=== PATIENT | female | born 1995 | race American Indian/Alaskan Native ===

== ENCOUNTER 2020-01-05 19:30 | Observation (INO) | payer MEDICAID ==
[2020-01-05] MEDS ORDERED: Naloxone 2 MG/2 ML Syringe IVPUSH PRN (20:36)
[2020-01-05] MEDS ORDERED: Methylergonovine 0.2 MG/1 ML Amp IM PRN (20:36)
[2020-01-05] MEDS ORDERED: Promethazine 25 MG/ML SDV IM PRN (20:36)
[2020-01-05] MEDS ORDERED: Tranexamic Acid 1,000 MG in Sodium Chloride 0.9% 100 ML IV PRN (20:36)
[2020-01-05] MEDS ORDERED: Carboprost Tromethamine 250 MCG/1 ML Amp IM PRN (20:36)
[2020-01-05] MEDS ORDERED: Acetaminophen 325 MG Tab PO PRN (20:36)
[2020-01-05] MEDS ORDERED: Ondansetron 4 MG/2 ML SDV IVPUSH PRN ×2 (20:36)
[2020-01-05] MEDS ORDERED: fentaNYL 100 MCG/2 ML SDV IVPUSH PRN (20:36)
[2020-01-05] MEDS ORDERED: Misoprostol 400 MCG (4 X 100 MCG TAB) RECTAL PRN (20:36)
[2020-01-05] MEDS ORDERED: ePHEDrine 50 MG/ML SDV IVPUSH PRN (20:36)
[2020-01-05] MEDS ORDERED: Lidocaine 1% 30 ML SDV INJECT PRN (20:36)
[2020-01-05] MEDS ORDERED: Lactated Ringers 1,000 ML IV ONE (20:36)
[2020-01-05] MEDS ORDERED: Sodium Chloride 0.9% 10 ML Syringe FLUSH PRN (20:36)
[2020-01-05] MEDS ORDERED: Sodium Chloride 0.9% 1,000 ML IV ONE (20:45)
[2020-01-05] MEDS ORDERED: Oxytocin/Normal Saline 30 UNIT/500 ML BAG IV SCH (20:45)
[2020-01-05] MEDS ORDERED: Lactated Ringers 500 ML IV SCH (20:45)
[2020-01-05] MEDS ORDERED: Lactated Ringers 500 ML IV ONE (20:45)
[2020-01-05] MEDS ORDERED: Lactated Ringers 1,000 ML IV SCH (20:45)
--- NOTE | 2020-01-06 00:39 | HP ---
CHIEF COMPLAINT: Leakage of fluid. HISTORY OF PRESENT ILLNESS: A 24-year-old 1, para 0, currently at 39- 4/7 weeks' gestation based on 9-week ultrasound and a working due date of 01/08/2020, presents to Labor and Delivery reporting some off and on leakage from her vagina throughout the day and initially was not sure if this was urinary leakage or amniotic fluid, but it continues to trickle and is not stopping. It has remained clear. She has had no vaginal bleeding. Reports she also started having some irregular contractions, but really cannot tell me what time they started or how far apart they are. Otherwise, reporting good movement. No symptoms of preeclampsia. No other acute concerns or problems at this time. HISTORY: She is seeing Dr. Dewitt for care. Medication exposures include vitamin, Keflex, amoxicillin, and Rocephin. She had an impaired 1-hour glucose tolerance test of 146, but 3-hour test was negative. She has some obesity and she was also treated for a skin abscess this . Her blood type is O positive. She is rubella immune and group B strep negative. Urine drug screen negative. Hepatitis testing, HIV testing, syphilis testing, gonorrhea, and chlamydia were all negative. PAST MEDICAL HISTORY: Obesity, otherwise negative. SURGICAL HISTORY: None. FAMILY HISTORY: Mother from breast cancer when she was only 39 years old. Father's history is unknown as she does not keep in touch with him. Reports that she has several sisters, 1 of whom named Tremayne has polycystic ovarian syndrome. She has 3 brothers, who are all alive and well. Paternal grandfather and his medical history is unknown. Paternal grandmother with cancer. Maternal grandmother had breast cancer and still alive. Maternal grandfather is unknown. Several aunts have various types of cancers. Otherwise, family history is reportedly unremarkable. SOCIAL HISTORY: The patient has lived with her boyfriend for the last 6 years and this is the first child for each of them. She works at the [employer] at the [employer] in [place]. He works at the same [employer] in the [employer]. He also is a road builder for actual structures and buildings. Reports that his health is good. He has a brother with type 1 diabetes and his mother has type 2 diabetes. He chews tobacco and occasionally smokes. She quit smoking for the . They do have 2 dogs at home. MEDICATIONS: vitamins and Tylenol when needed. ALLERGIES: No known drug allergies. She is allergic to garcía and chemicals in the chlorinated pools. REVIEW OF SYSTEMS: As per the history of present illness, otherwise reportedly negative. PHYSICAL EXAMINATION: General: Healthy, well-appearing, female. Vital Signs: Blood pressure 129/78, pulse of 82. She is afebrile and respiratory rate of 18. HEENT: Unremarkable. Teeth were in good hygiene. Neck: Supple without adenopathy. Heart: Regular without murmur. Lungs: Clear to auscultation bilaterally. Abdomen: Gravid. Baby palpates vertex. [place] shows baseline heart tones at 135 beats per minute. Moderate oozg-dk-uljn variability and accelerations noted. Contractions are approximately every 6 minutes. Cervix is 3 cm, 50%, and -3. Bag of membranes is not palpated. Extremities: Trace edema. No erythema or tenderness is noted. Skin: Warm, dry, and appropriate for race. Neurological: Appropriate. No focal deficits. Reflexes are 2+ and equal. LABORATORY DATA: Hemoglobin 12.9, platelets 263. Rapid COVID is negative. ASSESSMENT: 1. Early labor in a 1, para 0 female patient at 39-4/7 weeks' gestation. 2. Obesity affecting . PLAN: The patient will be admitted to Labor and Delivery and we will see how things progress. Anticipate natural progression of labor. However, we will augment with Pitocin if necessary and plan for vaginal delivery making other adjustments as needed should any complications or problems arise. [facility] /[id number]
--- NOTE | 2020-01-06 15:28 | DISCH ---
ADMITTING DIAGNOSES: 1. Early labor in a 1, para 0 female patient at 39-4/7 weeks' gestation. 2. Obesity, affecting . DISCHARGE DIAGNOSES: 1. 1, para 0, at 39-5/7 weeks' gestation, not in active labor. 2. Obesity, affecting . 3. COVID test negative. BRIEF HISTORY: A 24-year-old female presented to the hospital believing that she had spontaneous rupture of membranes due to some clear leakage of fluid on and off throughout the day and some irregular contractions. She did have some clear fluid seen at the perineal area and AmniSure was not initially done because the patient's contractions went from every 6 minutes to every 4 minutes while she was here and she was 3 cm dilated when she had only been a centimeter and a half at the office a few days earlier, so it was felt that she was in early labor and so she was admitted for labor with a suspicion of ruptured membranes late in the evening. After midnight, her cervix had made significant change, and she was now having spacing of her contractions, so Pitocin was initiated for labor induction assuming that she was spontaneously ruptured. In the morning when I came in and saw her, her cervix was unchanged, Pitocin was at 10, and she was aicha about every 2 minutes but they were mild and she was not really feeling them. Decision was made to run an AmniSure test that was negative. Cervix remained unchanged. Pitocin was turned off. The baby had a verified category 1 tracing and contractions spaced further. Therefore, decision was made that she was not in labor and not ruptured, therefore, could be discharged home and present again when she is actually in labor. The patient had benefit of being here and observed overnight since she lives a couple of hours away from the hospital and she had initially presented in the late evening. Discharge condition is good. Blood pressure 119/79, pulse of 79, temperature 97.4, and respiratory rate of 18. monitoring strip: Baseline heart tones 125 beats per minute with moderate kaup-si-qalz variability. Accelerations noted. [place] shows showing some contractions about every 5 minutes when they traced well, but patient really denied feeling anything painful. It was discussed with her that she was not in active labor and not ruptured, and there were increased risks associated with proceeding with induction of labor when it is not appropriate and given that she was most recently on Pitocin of 12 and still not changing her cervix, it was felt best to await natural labor. Her questions were answered, and she was satisfied with that. DISPOSITION: Home. MEDICATIONS: Tylenol if needed for pain or discomfort. Otherwise, continue her vitamin and iron. FOLLOWUP: She will keep her next scheduled appointment with Dr. Dewitt for further assessment at that time. INSTRUCTIONS: She understands to return to Labor and Delivery if she has repeat leakage of fluid that is concerning for spontaneous rupture. If she has regular contractions, decreased movement, signs and symptoms of labor, preeclampsia or any other concerns or questions, she can certainly call. The patient felt comfortable with the plan and she was discharged. [facility] /[id number] MARIA DEL CARMEN
== END 2020-01-06 11:45 | disposition home or self-care (01) ==
LOC: DL.OBCHECK 19:30 → DL.OB 20:37
PROVIDERS: ADMIT Family Medicine; ATTEND Family Medicine
DX: O47.1 False labor at or after 37 completed weeks of gestation (principal); O99.214 Obesity complicating childbirth; Z3A.39 39 weeks gestation of pregnancy; Z20.828 Contact with and (suspected) exposure to other viral communicable diseases
CPT/HCPCS: 36415; 84112; 85027; 87635; 96361; 96365; 96366; A9270; G0378; J2590; J7120; U0002

== ENCOUNTER 2020-01-09 04:55 | Inpatient (IN) | payer MEDICAID ==
[2020-01-09] MEDS ORDERED: Lidocaine 1% 30 ML SDV INJECT PRN (06:31)
[2020-01-09] MEDS ORDERED: Misoprostol 400 MCG (4 X 100 MCG TAB) RECTAL PRN (06:31)
[2020-01-09] MEDS ORDERED: Ondansetron 4 MG/2 ML SDV IVPUSH PRN (06:31)
[2020-01-09] MEDS ORDERED: Acetaminophen 325 MG Tab PO PRN (06:31)
[2020-01-09] MEDS ORDERED: Tranexamic Acid 1,000 MG in Sodium Chloride 0.9% 100 ML IV PRN (06:31)
[2020-01-09] MEDS ORDERED: Carboprost Tromethamine 250 MCG/1 ML Amp IM PRN (06:31)
[2020-01-09] MEDS ORDERED: Sodium Chloride 0.9% 10 ML Syringe FLUSH PRN ×2 (06:31→19:40)
[2020-01-09] MEDS ORDERED: Methylergonovine 0.2 MG/1 ML Amp IM PRN (06:31)
[2020-01-09] MEDS ORDERED: Lactated Ringers 1,000 ML IV ONE (06:31)
[2020-01-09] MEDS: Lactated Ringers 1,000 ML IV SCH ×2 (06:41→14:13)
[2020-01-09] MEDS ORDERED: Oxytocin/Normal Saline 30 UNIT/500 ML BAG IV SCH (06:45)
--- NOTE | 2020-01-09 07:41 | OBOUT ---
DATE: 01/09/2020 TIME: 5:40 to 6 a.m. REASON FOR NST: 1. Intrauterine at 40-1/7 weeks by 9-1/7 week ultrasound. 2. Rupture of membranes with early labor. Rupture membranes at approximately 2 a.m. on date of admission. 3. GBS negative. 4. Impaired glucose tolerance. 5. G1, P0. NST INTERPRETATION: During this time period, heart tone baseline is approximately 130, and at least two 15 x 15 beats per minute accelerations making this strip reactive as well as reassuring. Tocometer reveals potential of at least 1 and possibly 2 contractions felt by patient. ASSESSMENT: 1. Nonstress test, reactive and reassuring. 2. Tocometer with contractions. PLAN: Please see admit history and physical for further details. [facility] /[id number]
--- NOTE | 2020-01-09 07:44 | HP ---
PATIENT IDENTIFICATION: Latasha Covarrubias is a 24-year-old, G1, P0, intrauterine at 40-1/7 weeks by 9-1/7 week ultrasound, who presents with leaking of vaginal fluid. HISTORY OF PRESENT ILLNESS: The patient states around 2 a.m., she woke up with her underwear completely soaked. She had to change them over 2 times, wore a pad to the local hospital, was evaluated there, and sent here as suspected rupture of membranes. Associated with this have been some mild cramps/contractions felt in the lower abdomen, that is intermittent in nature. She does also note some minimal bloody show. No active significant amount of bleeding. To put this in context, she was seen earlier this week over the weekend, was admitted overnight with suspected rupture of membranes, which turned out to be negative, and was sent home. She also has impaired glucose tolerance and is GBS negative. Records called for, reviewed as below, and supplemented by patient history. [facility]: ABO blood type O positive, negative antibody. Rubella immune. RPR nonreactive. Negative hepatitis B surface antigen. Negative hep C, HIV, GC, and Chlamydia. Wet prep within normal limits. One-hour GTT was 146 with 3-hour GTT being negative for gestational diabetes mellitus. GBS was negative on 12/07/2019. ALLERGIES: None. MEDICATION: vitamins. PAST MEDICAL/PAST SURGICAL HISTORY: Remarkable for chickenpox as a child. FAMILY HISTORY: Negative family history of anesthesia problems, bleeding problems, or defects. Breast cancer in mother, who was 37 years old when she passed. SOCIAL HISTORY: Lives in [place] with her boyfriend, father of the baby, Brenden Pham, and a female roommate, who presents with her today. She quit smoking when she had a positive test. During this , no alcohol or drug use elicited. REVIEW OF SYSTEMS: Otherwise reviewed fully and felt to be contributory for the above. OBJECTIVE: Vital Signs: Blood pressure 123/67, heart rate 92, temperature 97.5. Appearance: Female appears stated age, nontoxic appearance with breathing through occasional cramps/contractions while evaluating her, but answering questions appropriately in between. Head: Atraumatic. EOMs intact. PERRLA. No scleral icterus. No obvious otorhinorrhea. Mucous membranes are moist. Neck: No obvious tenderness. Lungs: Clear to auscultation bilaterally. No increased work of breathing. Heart: S1, S2. Regular rate and rhythm. Abdomen: Gravid. Sony's indeterminate. Nontender, nondistended. Bowel sounds positive. No organomegaly or obvious hernias. No rebound, rigidity, or guarding. : Normal external female genitalia. Normal position and presentation of urethra. Vaginal exam changed from 2 cm to 3 cm from nurse to my evaluation over an hour. There is some vaginal leaking that appears clear with some mild bloody show. Forebag was felt. Then, artificial rupture of membranes using amnio hook was done of this, yielding copious amounts of clear fluid. She is 3 cm, 60% to 75% effaced, -1 station. Vertex suspected and well applied. Extremities: No peripheral edema. Deep tendon reflexes 2 to 3 out of 4 bilaterally and symmetric in extremities. Psychiatric: Mood and affect congruent. Judgment and insight intact. Skin: Without cyanosis, clubbing, or jaundice. heart tones initially were in the 120s to 130s range, felt to be reactive and reassuring. Tocometer reveals occasional contraction. Rapid COVID is negative. CBC is pending. ASSESSMENT: 1. Intrauterine at 40-1/7 weeks by 9-1/7 week ultrasound. 2. Rupture of membranes with possible early labor as this occurred at 2 a.m. in the morning. It is currently around 6:30, 4-1/2 hours after. She has had occasional contraction. She had mild cervical change and forebag was felt, and artificial rupture membranes was done yielding copious amounts of clear fluid with some mild bloody show. 3. Group B Streptococcus negative. 4. Impaired glucose tolerance. 5. G1, P0. PLAN: We will continue to follow closely. If contractions do not increase in frequency or intensity, may consider Pitocin augmentation and follow closely at this point in time. The patient understands and agrees with above treatment plan. [facility] /[id number] MTDD
[2020-01-09] MEDS ORDERED: fentaNYL 100 MCG/2 ML SDV IVPUSH PRN (10:48)
[2020-01-09] MEDS ORDERED: EPINEPHrine 1 MG/1 ML Amp ONE ×2 (12:58→13:00)
[2020-01-09] MEDS ORDERED: fentaNYL 100 MCG/2 ML SDV ONE (12:58)
[2020-01-09] MEDS ORDERED: fentaNYL 100 MCG/2 ML SDV ITHECAL ONE (13:00)
--- NOTE | 2020-01-09 13:31 | PCM.PRNOTE ---
- Free Text/Narrative Note: Requested to provide analgesia to full term patient in severe pain. Upon entering the room, patient is sitting on edge of bed complaining of severe abdominal/pelvic pain and discomfort. Procedure was discussed with patient including adverse outcomes and expectations. Pt consented to analgesia, SAB/IT. Pt placed into a proper sitting position. Landmarks for SAB/IT were identified and marked. Hands were washed and appropriate PPE was applied. Back was prepped with betadine x3. A sterile, transparent, fenestrated drape was applied. Excess betadine was removed. Using 3 mL of a 1% lidocaine solution, a skin wheel was placed at the L2/L3 interspace. A 24 ga (4 inch) [place] spinal needle was inserted until positive for CSF. Negative for heme or paresthesias. Injected fentanyl 30 mcg, sufentanil 25 mcg, and 7.5 mg of a 0.75% bupivacaine solution with an epi wash. Pt was placed left lateral position for approximately 20 minutes. There were zero complications or adverse outcomes. Will continue to monitor. Procedure Date & Time: 01/09/20 [id number]
--- NOTE | 2020-01-09 14:42 | PN ---
DATE: 01/09/2020 SUBJECTIVE: The patient is feeling contractions. Has requested something for pain. Fentanyl has been ordered. OBJECTIVE: Vital Signs: Blood pressure 120/78, heart rate 80 to 86. General Appearance: Breathing through her contractions, using the peanut ball. PELVIC: heart tones difficult to discern, variables versus early decelerations with heart tone baseline around the 130s to 140s range. Tocometer, difficult to determine contractions, Pitocin is at 4 milliunits per minute. Vaginal exam reveals to be 5 cm, 85% effaced, 0 to +1 station, vertex suspected and IUPC placed after discussion with the patient and confirmed with coughing with pressure spike. ASSESSMENT/PLAN: Intrauterine at 40-1/7 weeks by 9-1/7 week ultrasound with rupture of membranes without labor, suspect 4 bag with artificial rupture of membranes done after that and subsequent Pitocin augmentation, and IUPC placement as above. We will need to follow closely maternal status and heart tones. The patient understands and agrees with above treatment plan. [facility] /[id number]
[2020-01-09] MEDS ORDERED: Simethicone 80 MG Tab.Chew PO PRN (19:40)
[2020-01-09] MEDS ORDERED: Oxytocin 10 Units/1 ML SDV IM PRN (19:40)
[2020-01-09] MEDS ORDERED: Zolpidem 5 MG Tab PO PRN (19:40)
[2020-01-09] MEDS ORDERED: Benzocaine/Menthol 20%-0.5% Spray 56 GM Canister TOP PRN (19:40)
[2020-01-09] MEDS: Ibuprofen 800 MG Tab PO PRN (22:11)
[2020-01-10] MEDS: Ibuprofen 800 MG Tab PO PRN ×3 (06:37→22:46)
--- NOTE | 2020-01-10 07:56 | PN ---
DATE: 01/10/2020 day #1 status post vacuum-assisted vaginal delivery; second-degree perineal laceration, repaired. SUBJECTIVE: The patient is tolerating p.o.'s, ambulating, urinating, and passing flatus. Bleeding has decreased. OBJECTIVE: Vital Signs: Heart rate 104, blood pressure 109/46, and respiratory rate 16. Lungs: Clear to auscultation bilaterally. Heart: S1 and S2. Regular rate and rhythm. Abdomen: Firm uterus, -1 below the umbilicus. Extremities: Trace pedal edema. No calf pain. LABORATORIES: CBC is pending from this morning; it has been drawn. ASSESSMENT: 1. day #1 status post vacuum-assisted vaginal delivery. 2. Second-degree perineal laceration, repaired. PLAN: We will continue to follow clinically and closely and follow CBC. The patient is currently asymptomatic in terms of her potential for anemia, and we will follow closely at this point in time. May add iron if her hemoglobin is low. [facility] /[id number]
--- NOTE | 2020-01-10 09:26 | PN ---
DATE: 01/09/2020 SUBJECTIVE: The patient is comfortable status post intrathecal. OBJECTIVE: heart tones 120s to 130s, acceleration noted with vaginal exam. Contractions: Tocometer reveals contractions every 1-1/2 to 3 minutes apart. Vaginal exam reveals her to be 8 cm, 100% effaced, 0 to +1 station, and vertex suspected. ASSESSMENT AND PLAN: Intrauterine at 40-1/7 weeks by 9-1/7 week ultrasound with rupture of membranes with questionable labor, I suspect forebag with artificial rupture of membranes. Now status post Pitocin augmentation, intrauterine pressure catheter placement and intrathecal. Currently comfortable. We will continue to follow clinically and closely. The patient understands and agrees with above treatment plan. [facility] /[id number]
[2020-01-10] MEDS: Prenatal Multivitamin with Calcium/Folic Acid/Iron Tab PO SCH (10:16)
--- NOTE | 2020-01-10 12:04 | DEL ---
DATE: 01/09/2020 PREOPERATIVE DIAGNOSES: 1. Intrauterine at 40-1/7 weeks by 9-/7 week ultrasound. 2. Rupture of membranes at approximately 2 a.m. on date of admission, suspect forebag as artificial rupture of membranes done. When admitted, had cervical change. 3. Group B Streptococcus negative. 4. Impaired glucose tolerance. 5. G1, P0. 6. bradycardia in the second stage of labor. POSTOPERATIVE DIAGNOSES: 1. Intrauterine at 40-1/7 weeks by 9-/7 week ultrasound-delivered. 2. Rupture of membranes at approximately 2 a.m. on date of admission, suspect forebag as artificial rupture of membranes done. When admitted, had cervical change. 3. Group B Streptococcus negative. 4. Impaired glucose tolerance. 5. G1, P0. 6. bradycardia in the second stage of labor. 7. 70-second shoulder dystocia, requiring Andrew and suprapubic pressure. 8. Nuchal cord x1 reduced bluntly at delivery. 9. Second-degree perineal laceration, repaired. 10.Trailing membranes, approximately 12 inches, teased out with ring forceps and other forceps. PROCEDURE PERFORMED: On date of admission, nonstress test, artificial rupture of membranes, Pitocin augmentation, intrauterine pressure catheter and subsequent vacuum-assisted vaginal delivery with second-degree perineal laceration, repaired. RN CLINICAL DOCUMENTATION SPECIALIST: Dave Kapadia MS-3. ANESTHESIA/ANALGESIA: The patient did receive an intrathecal in the first stage of labor. Nitrox in the first and second stage of labor. 1% lidocaine, approximately 10 mL, for local repair with good anesthetic result. ESTIMATED BLOOD LOSS: 400 mL. FINDINGS: Male. scores 4 and 8, weight 9 pounds 5 ounces. SUMMARY OF EVENTS: The patient is a 24-year-old G1, P0, intrauterine at 40-1/7 weeks by 9-/7 week ultrasound, admitted with rupture of membranes suspected with forebag at approximately 2 a.m. on date of admission. She was found to have some cervical change and artificial rupture of membranes done. Did yield clear fluid. She subsequently had Pitocin augmentation, IUPC placement. Did receive an intrathecal in the first stage of labor. She was found to be nearing the second stage of labor with heart rate decelerations. I was called to the room, donned sterile gown and gloves, as well as did Dave Kapadia. She was subsequently found to be complete and started pushing with more reassuring heart tones. Further descent was noted with pushing; however, shortly prior to delivery bradycardia was noted with heart rate in the 100s and sometimes less. Subsequently, discussion ensued. Prior to this, a catheter was placed in the bladder yielding clear urine. Subsequently, did discuss with the patient risks, benefits, alternatives, complications of vacuum-assisted vaginal delivery. She understood and agreed and wished to proceed. Verbal consent was obtained. Subsequently, with the next contraction, with vertex seen splitting the labia and essentially , Kiwi vacuum small cup was applied, pumped up to the green, and with gentle pulling pressure, making sure not to exceed into the red zone, further descent was noted with the next contraction with the patient pushing and vertex was delivered. Vacuum was disengaged. JORGE LUIS presentation was noted. Nuchal cord x1 was noted and reduced bluntly. Subsequently, attempts to deliver shoulder were unsuccessful. Andrew maneuver ensued. Still unable to deliver shoulder and subsequently suprapubic pressure was applied and anterior shoulder delivered. Subsequently, fetus then turned to straight transverse presentation and delivered with both shoulders in a transverse fashion as well as the rest of the infant. Mouth and nares were suctioned. Cord was doubly clamped and cut, and infant was brought to team for resuscitation. Then, approximately 10 mL of cord blood was obtained for labs. Placenta then delivered with gentle cord traction and fundal massage within 20 minutes, and there were trailing membranes with this, which were gently teased with ring forceps and another forceps, and was approximately 12 inches long. Pitocin was started and increased because of increased bleeding at that time. Fundal massage ensued. Perineum, vagina, and perirectal areas were then examined and noted to have a second-degree perineal laceration that was repaired in usual fashion using 3-0 Vicryl. Bilaterally, perilabial abrasions were noted, and the right side was bleeding. One oxpijt-ra-kewwc stitch was applied and hemostasis reassured over this area. No other tears or lacerations noted. Mother and infant are currently stable at time of dictation. [facility] /[id number]
[2020-01-10] MEDS: Docusate Sodium 100 MG Cap PO PRN ×2 (15:08→21:31)
[2020-01-11] MEDS: Prenatal Multivitamin with Calcium/Folic Acid/Iron Tab PO SCH (08:23)
[2020-01-11] MEDS: Docusate Sodium 100 MG Cap PO PRN (08:23)
[2020-01-11] MEDS: Ibuprofen 800 MG Tab PO PRN (08:23)
--- NOTE | 2020-01-11 10:01 | DISCH ---
ADMIT DIAGNOSES: 1. Intrauterine at 40-1/7 weeks by 9-/7 weeks' ultrasound. 2. Rupture of membranes at 2 a.m. on date of admission, suspect forebag with artificial rupture of membranes done later. 3. Group B streptococcus negative. 4. Impaired glucose tolerance. 5. G1, P0. DISCHARGE DIAGNOSES: 1. Intrauterine at 40-1/7 weeks by 9-/7 weeks' ultrasound, delivered. 2. Rupture of membranes at 2 a.m. on date of admission, suspect forebag with artificial rupture of membranes done later. 3. Group B streptococcus negative. 4. Impaired glucose tolerance. 5. G1, P0. 6. A 70-second shoulder dystocia requiring Andrew and suprapubic pressure. 7. bradycardia. 8. Nuchal cord x1, reduced bluntly at delivery. 9. Secondary perineal laceration, repaired. 10.Trailing membranes, approximately 12 inches, requiring gentle teasing with forceps. 11.Anemia of acute blood loss. Hemoglobin dropping from 12.3 to 9.1. PROCEDURES PERFORMED: Non-stress test, artificial rupture of membranes, Pitocin, IUPC placement, vacuum-assisted vaginal delivery, second-degree perineal laceration, repaired per Dr. Dewitt on 01/09/2020. HISTORY OF PRESENT ILLNESS: Please see H and P. SUMMARY OF HOSPITAL COURSE: The patient on the above date with above diagnoses, followed closely, had the above procedures done. Did receive an intrathecal, then went on to be found in the second stage of labor and had a vacuum-assisted vaginal delivery with bradycardia with second-degree perineal laceration that was repaired, that was complicated by a 70-second shoulder dystocia, requiring Andrew and suprapubic pressure. This yielded a male with score of 4 and 8, weighing 9 pounds 5 ounces with an EBL of 400 mL. day #1, see progress note. Postop day #2, date of discharge, the patient was tolerating p.o.'s, ambulating, urinating, passing flatus, requesting discharge. PHYSICAL EXAMINATION: Vital Signs: Last set of vitals; temperature 96.8, heart rate 98, blood pressure 117/66, and respiratory rate 18. Lungs: Clear to auscultation bilaterally. Heart: S1, S2. Regular rate and rhythm. Abdomen: Firm uterus. -1 below umbilicus. Trace pedal edema. No calf pain. Exam done in conjunction with Dave Kapadia, MS-4. CONDITION ON DISCHARGE COMPARED TO CONDITION ON ADMISSION: Improved. DISCHARGE INSTRUCTIONS: 1. Diet as tolerated. 2. Activity: No lifting more than 20 pounds. No sit-ups or straining. Pelvic rest for the next 6 weeks with immediate return to fertility discussed with the patient. Reasons to return or go to the emergency room were discussed with the patient in detail including, but not limited to temperature greater than 100.4, foul- smelling discharge, red hot tender breasts, or increased vaginal bleeding. DISCHARGE MEDICATIONS: [id number] ibuprofen for pain, vitamins for 6 weeks, as well as iron sulfate 325 b.i.d. x6 weeks, and Colace 100 mg b.i.d. p.r.n. #60, no refills given as well. FOLLOWUP: 6-week . Her baby will follow up on 01/15/2020 as long as there is no concerns with significant jaundice and did discuss this with the patient. Discussed the importance of followup and ramifications of not doing so, as well as reasons to go to emergency room in regard to her infant. [facility] /[id number]
--- NOTE | 2020-01-12 07:48 | PCM.DEL ---
L & D Note - Delivery Note Episiotomy Type: None Vacuum Extractor Progress Note - Alternative Labor Strategies Considered Alternative Labor Strategies Considered:: Reports: Yes Strategies Considered:: Reports: Contraction Intensity Adequate, Position Changes Used to Facilitate Rotation & Descent, Empty Bladder, Rest Indications Considered:: Reports: Yes Indications:: Reports: Suspicion of Immediate or Potential Compromise Time Out:: Reports: Yes - Patient Prepared Patient Prepared:: Reports: Yes Informed Consent:: Reports: Yes, Verbal Risks: Reports: Yes Risks Include:: Reports: Laceration, Shoulder Dystocia, Maternal Injury, Other Anesthesia/Analgesia Adequate:: Reports: Yes - Probability of Success High Probability of Success:: Reports: Yes Weight Estimated:: Reports: AGA Patient Diabetic:: Reports: No Pelvis Adequate:: Reports: Yes Position:: JORGE LUIS Asynclitic:: Reports: No Station:: with 2 cm of head seen out from labia - Application Time Maximum Application Time & Number of Pop-Offs Predetermined:: Reports: Yes Maximum Pressure Maintained in Green Zone (cm Hg):: 0 (see dictation) Total Application Time (min): *max=20min: 0 (see nurses notes, 1 contraction) Number of Times Cup Disengaged:: 0 Type of Vacuum Used:: Reports: Low profile (small kiwi vacuum) - Exit Strategy Exit strategy available:: Reports: Yes and resuscitation teams readily available:: Reports: Yes - General Info Date of Service: 01/09/20 - Patient Data Vitals - Most Recent: Last Vital Signs Temp 97.8 F 01/11/20 08:00 Pulse 89 01/11/20 08:00 Resp 18 01/11/20 08:00 BP 115/65 01/11/20 08:00 Pulse Ox 99 01/11/20 08:00 Weight - Most Recent: 105.233 kg Med Orders - Current: Current Medications Discontinued Medications Acetaminophen (Tylenol) 650 mg PO Q4H PRN PRN Reason: Pain (Mild 1-3) and fever Last Admin: 01/10/20 21:31 Dose: 650 mg Documented by: Benzocaine/Menthol (Dermoplast Pain Relief [place]) 0 gm TOP Q4H PRN PRN Reason: Perineal comfort measures Last Admin: 01/09/20 22:12 Dose: 1 spray Documented by: Carboprost Tromethamine (Hemabate Ds) 250 mcg IM ASDIRECTED PRN PRN Reason: HEMORRHAGE Docusate Sodium (Colace) 100 mg PO BID PRN PRN Reason: Constipation Last Admin: 01/11/20 08:23 Dose: 100 mg Documented by: Epinephrine HCl (Adrenalin) Confirm Administered Dose 1 mg .ROUTE .STK-MED ONE Stop: 01/09/20 12:59 Last Admin: 01/09/20 20:40 Dose: Not Given Documented by: Epinephrine HCl (Adrenalin) 0.1 mg .XX .STK-MED ONE Stop: 01/09/20 13:01 Fentanyl (Sublimaze) 100 mcg IVPUSH Q1H PRN PRN Reason: Pain (severe 7-10) Last Admin: 01/09/20 11:06 Dose: 100 mcg Documented by: Fentanyl (Sublimaze) Confirm Administered Dose 100 mcg .ROUTE .STK-MED ONE Stop: 01/09/20 12:59 Last Admin: 01/09/20 20:40 Dose: Not Given Documented by: Fentanyl (Sublimaze) 25 mcg ITHECAL .STK-MED ONE Stop: 01/09/20 13:01 Tranexamic Acid 1,000 mg/ (Sodium Chloride) 110 mls @ 660 mls/hr IV ONETIME PRN PRN Reason: Bleeding Oxytocin/Sodium Chloride (Pitocin In Ns 30 Unit/500 Ml) 30 unit in 500 mls @ 2 mls/hr IV TITRATE KEATON; Protocol Last Titration: 01/09/20 21:06 Dose: Infused Documented by: Lactated Ringer's (Ringers, Lactated) 1,000 mls @ 500 mls/hr IV BOLUS ONE Stop: 01/09/20 08:30 Last Admin: 01/09/20 14:12 Dose: 500 mls/hr Documented by: Lactated Ringer's (Ringers, Lactated) 1,000 mls @ 125 mls/hr IV ASDIRECTED KEATON Last Admin: 01/09/20 14:13 Dose: 125 mls/hr Documented by: Ibuprofen (Motrin) 800 mg PO Q8H PRN PRN Reason: Mild Pain or Fever Last Admin: 01/11/20 08:23 Dose: 800 mg Documented by: Lidocaine HCl (Xylocaine-Mpf 1%) 30 ml INJECT ASDIRECTED PRN PRN Reason: Perineal Repair Last Admin: 01/09/20 19:05 Dose: 30 ml Documented by: Methylergonovine Maleate (Methergine) 0.2 mg IM ASDIRECTED PRN PRN Reason: Hemorrhage Misoprostol (Cytotec) 800 mcg RECTAL ASDIRECTED PRN PRN Reason: Hemorrhage Ondansetron HCl (Zofran) 4 mg IVPUSH Q4H PRN PRN Reason: Nausea/Vomiting Last Admin: 01/09/20 14:07 Dose: 4 mg Documented by: Oxytocin (Pitocin) 10 unit IM ONETIME PRN PRN Reason: Bleeding Prenat Multivit/Greenlee/Iron/Folic Ac ( Plus Iron) 1 each PO DAILY KEATON Last Admin: 01/11/20 08:23 Dose: 1 each Documented by: Simethicone (Simethicone) 80 mg PO Q4H PRN PRN Reason: Gas Sodium Chloride (Saline Flush) 10 ml FLUSH ASDIRECTED PRN PRN Reason: Keep Vein Open Sodium Chloride (Saline Flush) 10 ml FLUSH ASDIRECTED PRN PRN Reason: Keep Vein Open Sufentanil Citrate (Sufenta) Confirm Administered Dose 50 mcg .ROUTE .STK-MED ONE Stop: 01/09/20 13:00 Last Admin: 01/09/20 20:41 Dose: Not Given Documented by: Sufentanil Citrate (Sufenta) 30 mcg ITHECAL .STK-MED ONE Stop: 01/09/20 13:01 Witch Zoey (Medi-Pads) 1 each TOP Q4HR PRN PRN Reason: Perineal Comfort Measure Last Admin: 01/09/20 22:11 Dose: 2 piece Documented by: Zolpidem Tartrate (Ambien) 5 mg PO BEDTIME PRN PRN Reason: Insomnia - Problem List Review Problem List Initiated/Reviewed/Updated: Yes
== END 2020-01-11 11:30 | disposition home or self-care (01) | DRG 806 ==
LOC: DL.NPLAB 04:55 → DL.OB 05:03 → OBSVTOIN 06:31 → INTOOBSV 06:31 → OBSVTOIN 18:57 → DL.OB 18:57 → DL.MS 01-10 01:15
PROVIDERS: ADMIT Family Medicine; ATTEND Family Medicine
PROC: 10D07Z6 Extraction of Products of Conception, Vacuum, Via Natural or Artificial Opening (ICD-10-PCS; principal; 2020-01-09)
PROC: 0KQM0ZZ Repair Perineum Muscle, Open Approach (ICD-10-PCS; 2020-01-09)
PROC: 10907ZC Drainage of Amniotic Fluid, Therapeutic from Products of Conception, Via Natural or Artificial Opening (ICD-10-PCS; 2020-01-09)
PROC: 10H07YZ Insertion of Other Device into Products of Conception, Via Natural or Artificial Opening (ICD-10-PCS; 2020-01-09)
PROC: 3E0R3BZ Introduction of Anesthetic Agent into Spinal Canal, Percutaneous Approach (ICD-10-PCS; 2020-01-09)
PROC: 00HU33Z Insertion of Infusion Device into Spinal Canal, Percutaneous Approach (ICD-10-PCS; 2020-01-09)
DX: O69.81X0 Labor and delivery complicated by cord around neck, without compression, not applicable or unspecified (principal); D62 Acute posthemorrhagic anemia; Z37.0 Single live birth; O99.814 Abnormal glucose complicating childbirth; Z20.828 Contact with and (suspected) exposure to other viral communicable diseases; O99.02 Anemia complicating childbirth; O70.1 Second degree perineal laceration during delivery; O76 Abnormality in fetal heart rate and rhythm complicating labor and delivery; O66.0 Obstructed labor due to shoulder dystocia; Z3A.40 40 weeks gestation of pregnancy
CPT/HCPCS: 01967; 36415; 59409; 85027; A9270-GY; J0171; J2001; J2405; J2590; J3010; J7120; U0002